=== PATIENT | male | born 1965 | race Caucasian/White ===

== ENCOUNTER 2020-07-04 00:22 | Emergency (ER) | payer OTHER ==
[2020-07-04] MEDS ORDERED: Magnesium 2 GM/50 ML BAG (IN WATER) ONE (01:08)
[2020-07-04 01:19] LABS: #Eosinphils 0.1 thou/uL (0.0-0.7); #Lymphocytes 2.6 thou/uL (1.20-3.40); #Monocytes 0.5 thou/uL (0.11-0.59); #Neutrophils 3.4 thou/uL (1.40-6.50); %Basophils 0.7 % (0.0-1.0); %Eosinophils 1.5 % (0.0-10.0); %Lymphocytes 38.9 % (21.0-51.0); %Neutrophils 51.9 % (42.0-75.0); Hemoglobin 16.6 g/dL (14.0-18.0); Mean Corpuscular HGB CONC 33.8 g/dL (32.0-36.0); Mean Corpuscular Hemoglobin 32.8 pg (27.0-31.0); Mean Corpuscular Volume 96.9 fL (78.0-98.0); Mean Platelet Volume 6.7 fL (7.4-10.4); Platelet Count 136 thou/uL (130-400); RBC Distribution Width 14.5 % (11.5-14.5); Red Blood Cell (RBC) Count 5.05 mill/uL (4.70-6.10); White Blood Cell (WBC) Count 6.6 thou/uL (4.8-10.8)
[2020-07-04 01:20] LABS: Acetaminophen Less than 6.0 mcg/mL (10.0-30.0); Alcohol 362 mg/dL (Less than 10); CK (CPK) 122 U/L (30-200); Salicylate Less than 8.0 mg/dL (15.0-30.0)
[2020-07-04 01:24] LABS: Amphetamine Not Detected (NotDetected); Barbiturates Screen Not Detected (NotDetected); Benzodiazepine Screen Not Detected (NotDetected); Cocaine Metabolite Screen Not Detected (NotDetected); Medtox Control Line Valid? VALID (VALID); Methadone Not Detected (NotDetected); Methamphetamine Not Detected (NotDetected); Opiate Screen Not Detected (NotDetected); Oxycodone Screen Not Detected (NotDetected); Phencyclidine (PCP) Not Detected (NotDetected); THC/Cannabinoid Screen Not Detected (NotDetected); Tricyclic Screen Not Detected (NotDetected)
[2020-07-04 01:25] LABS: ALT (SGPT) 52 U/L (8-55); AST (SGOT) 103 U/L (5-34); Albumin 3.7 g/dL (3.5-5.0); Alkaline Phosphatase 155 U/L (40-110); Anion Gap 18 mmol/L (10-20); BUN (Urea Nitrogen) Less than 4 mg/dL (8.4-25.7); Bilirubin, Total 0.4 mg/dL (0.2-1.2); Calc. Creatinine Clearance 0 mL/min (70-130); Calcium 7.9 mg/dL (7.8-10.44); Carbon Dioxide 22 mmol/L (22-29); Chloride 98 mmol/L (98-107); Globulin 4.1 g/dL (2.4-3.5); Glucose 104 mg/dL (70-105); Potassium 3.7 mmol/L (3.5-5.1); Protein, Total 7.8 g/dL (6.0-8.3); Sodium 134 mmol/L (136-145)
[2020-07-04] MEDS ORDERED: Thiamine HCl 200 MG/2 ML VIAL ONE (01:39)
[2020-07-04] MEDS ORDERED: hydrALAZINE 25 MG TAB ONE ×2 (02:05→02:07)
[2020-07-04] MEDS ORDERED: hydrOXYzine 25 MG TAB ONE (02:06)
[2020-07-04] MEDS ORDERED: Lorazepam 2 MG/ML VIAL ONE (02:14)
== END 2020-07-04 00:36 | disposition short-term general hospital (02) ==
LOC: BURERS 00:22
DX: F10.129 Alcohol abuse with intoxication, unspecified (principal); Y90.8 Blood alcohol level of 240 mg/100 ml or more; R45.851 Suicidal ideations; J44.9 Chronic obstructive pulmonary disease, unspecified; K21.9 Gastro-esophageal reflux disease without esophagitis; F17.210 Nicotine dependence, cigarettes, uncomplicated; Z79.899 Other long term (current) drug therapy
CPT/HCPCS: 36415; 80053; 80306; 80307; 82550; 84443; 85025; 93005; 96365; 96375; J2060; J3411; J3475

== ENCOUNTER 2020-07-20 17:04 | Emergency (ER) | payer OTHER | END 2020-07-20 17:50 | LOC: BURERS 17:04 | DX: F32.9 Major depressive disorder, single episode, unspecified (principal); F10.10 Alcohol abuse, uncomplicated; J44.9 Chronic obstructive pulmonary disease, unspecified; F17.210 Nicotine dependence, cigarettes, uncomplicated | CPT/HCPCS: 93005 ==